=== PATIENT | female | born 1965 | race Caucasian/White ===

== ENCOUNTER 2022-10-08 09:39 | Observation (INO) ==
[2022-10-08 12:05] LABS: BASOPHILS % (AUTO) 0.8 % (0.2-1.0); EOSINOPHILS # (AUTO) 0.2 x10^3/uL (0.0-0.2); HEMATOCRIT 28.4 % (36.0-47.0); HEMOGLOBIN 9.5 g/dL (12.0-16.0); LYMPHOCYTES # (AUTO) 1.5 X10^3/uL (1.3-2.9); LYMPHOCYTES % (AUTO) 25.1 % (21.0-51.0); MEAN CORPUSCULAR HEMOGLOBIN 30.1 pg (27.0-34.0); MEAN CORPUSCULAR HGB CONC 33.5 g/dL (33.0-35.0); MEAN PLATELET VOLUME 9.4 fL (7.4-11.0); MONOCYTES # (AUTO) 0.4 x10^3/uL (0.3-0.8); MONOCYTES % (AUTO) 7.1 % (0.0-13.0); RED BLOOD COUNT 3.16 X10^6/uL (3.5-5.4); RED CELL DISTRIBUTION WIDTH 13.8 % (11.6-16.5); WHITE BLOOD COUNT 6.2 X10^3/uL (3.6-10.0)
[2022-10-08 12:08] VITALS: BMI 46.8
[2022-10-08 12:16] LABS: ALANINE AMINOTRANSFERASE 12 Units/L (12-78); ALKALINE PHOSPHATASE 168 Units/L (46-116); ASPARTATE AMINO TRANSFERASE 13 Units/L (15-37); BLOOD UREA NITROGEN 44 mg/dL (7-18); CALCIUM 8.9 mg/dL (8.5-10.1); CARBON DIOXIDE 25.6 mmol/L (21-32); CHLORIDE 106 mmol/L (98-107); COR CA(FOR HYPOALB) 9.7 mg/dL (8.5-10.1); CREATININE 2.59 mg/dL (0.55-1.02); SODIUM 139 mmol/L (136-145); TOTAL PROTEIN 7.2 g/dL (6.4-8.2); eGFR NON BLACK RACES 20 (>60)
[2022-10-08] MEDS ORDERED: NEURONTIN CAP 300 MG PO PRN (12:32)
[2022-10-08] MEDS ORDERED: FLEXERIL TAB 10 MG PO PRN (12:32)
[2022-10-08] MEDS: NS 1,000 ML IV 1,000 ML IV SCH ×2 (13:31→21:52)
[2022-10-08] MEDS: KAYEXALATE SUSP PO SCH ×2 (13:31→20:10)
--- NOTE | 2022-10-08 14:52 | RAD ---
HISTORYWeaknessSTUDYAP chestCOMPARISONMar 2022FINDINGSHeart size normal with clear lungs and pleural spaces. There is no significant vascular congestion, pneumonia or pleural effusion.IMPRESSIONNo acute chest findings.Electronically signed by: GERBER ZAPATA (Oct 08, 2022 14:51:37)
[2022-10-08 15:15] LABS: BILIRUBIN,URINE NEGATIVE (NEGATIVE); BLOOD/HEMOGLOBIN,URINE NEGATIVE (NEGATIVE); GLUCOSE, URINE NEGATIVE (NEGATIVE); KETONES,URINE NEGATIVE (NEGATIVE); LEUKOCYTE ESTERASE ,URINE NEGATIVE (NEGATIVE); NITRITES,URINE POSITIVE (NEGATIVE); PH,URINE 6.5 (5.0 - 8.0); PROTEIN,URINE NEGATIVE (NEGATIVE); UROBILINOGEN,URINE 1+ (NORMAL)
[2022-10-08 15:34] LABS: APPEARANCE,URINE SLIGHTLY HAZY (CLEAR); BACTERIA,URINE 4+ /HPF (NEGATIVE); COLOR,URINE YELLOW (YELLOW); RBC,URINE NONE SEEN /HPF (0-3); SQUAMOUS EPITHELIAL CELL,UR MODERATE /HPF (NEGATIVE)
[2022-10-08] MEDS ORDERED: Atrovent NEB TX 0.02% ONE (19:04)
[2022-10-08] MEDS: SEROquel TAB 25 mg PO SCH (20:11)
[2022-10-08] MEDS: BUSPAR PO SCH (20:11)
[2022-10-08] MEDS: ZOLOFT PO SCH (20:12)
[2022-10-08] MEDS: PROVENTIL NEB TX 0.083% 2.5MG/ 3ML NEB PRN (20:24)
[2022-10-08] MEDS: Atrovent NEB TX 0.02% NEB SCH (20:24)
[2022-10-09] MEDS: NORCO 10/325 TAB PO PRN (00:36)
[2022-10-09 05:05] LABS: BASOPHILS # (AUTO) 0.1 X10^3/uL (0.0-0.1); BASOPHILS % (AUTO) 0.9 % (0.2-1.0); EOSINOPHILS # (AUTO) 0.2 x10^3/uL (0.0-0.2); EOSINOPHILS % (AUTO) 4.4 % (0.9-2.9); HEMATOCRIT 24.2 % (36.0-47.0); HEMOGLOBIN 8.2 g/dL (12.0-16.0); LYMPHOCYTES # (AUTO) 2.5 X10^3/uL (1.3-2.9); MEAN CORPUSCULAR HEMOGLOBIN 30.4 pg (27.0-34.0); MEAN CORPUSCULAR VOLUME 89.4 fL (80.0-100.0); MONOCYTES # (AUTO) 0.5 x10^3/uL (0.3-0.8); MONOCYTES % (AUTO) 8.7 % (0.0-13.0); NEUTROPHILS # (AUTO) 2.3 x10^3/uL (2.2-4.8); RED BLOOD COUNT 2.71 X10^6/uL (3.5-5.4); WHITE BLOOD COUNT 5.6 X10^3/uL (3.6-10.0)
[2022-10-09 05:16] LABS: ALBUMIN 2.5 g/dL (3.4-5.0); CALCIUM 7.8 mg/dL (8.5-10.1); CARBON DIOXIDE 24.7 mmol/L (21-32); CREATININE 2.29 mg/dL (0.55-1.02); TOTAL PROTEIN 6.1 g/dL (6.4-8.2)
[2022-10-09] MEDS: NS 1,000 ML IV 1,000 ML IV SCH ×3 (05:45→20:49)
[2022-10-09] MEDS ORDERED: PULMICORT NEB TX 0.5 MG NEB ONE (06:58)
[2022-10-09] MEDS: PULMICORT NEB TX 0.5 MG NEB SCH ×2 (08:23→20:42)
[2022-10-09] MEDS: Atrovent NEB TX 0.02% NEB SCH (08:23)
[2022-10-09] MEDS: SINGULAIR TAB 10 MG PO SCH (08:38)
[2022-10-09] MEDS: BUSPAR PO SCH ×2 (08:39→20:48)
[2022-10-09] MEDS: ROCALTROL PO SCH (08:39)
[2022-10-09] MEDS: ROCEPHIN VIAL 1 GRAM 1 G in NS 100 ML IV 100 ML IV SCH ×2 (08:54→09:00)
[2022-10-09] MEDS ORDERED: INFeD or DEXFERRUM 25 MG in NS 100 ML IV 100 ML IV ONE (09:00)
[2022-10-09] MEDS ORDERED: NS IV ONE (10:00)
[2022-10-09] MEDS ORDERED: INFED OR DEXFERRUM IV ONE (10:00)
[2022-10-09] MEDS ORDERED: FLUZONE II4 or AFLURIA II4 IM ONE (10:01)
--- NOTE | 2022-10-09 10:16 | RAD ---
HISTORYCHFSTUDYCHEST, 1 [id number]/30/2023.TECHNIQUEPA or AP view of the chestFINDINGSThe cardiac and mediastinal contours are within normal limits. The lungs are clear without focal consolidation or segmental collapse. No pleural effusion or pneumothorax. Soft tissue attenuation limits evaluation.IMPRESSIONNo acute pulmonary process.Electronically signed by: Zackary Arnold (Oct 09, 2022 10:15:25)
[2022-10-09] MEDS ORDERED: INFeD or DEXFERRUM 975 MG in NS 500 ML IV 500 ML IV ONE (12:00)
--- NOTE | 2022-10-09 13:29 | DR.H&P ---
H&P - History & Physical for Day of: H&P Date: 10/08/22 - Chief Complaint Chief Complaint: weakness, high potassium level - History of Present Illness History of Present Illness: PT IS 56 WF, DIRECT ADMIT WITH ACUTE RENAL FAILURE, HYPERKALEMIA AND COMPLAINTS OF DIFFUSE WEAKNESS. PT REPORTS SHE WAS RECENTLY IN [facility] FOR "ACUTE KIDNEY FAILURE". PT DENIES ANY PMH OF CAD, HOWEVER STATES HAS CHF. PT HAS PMH OF DM, CAD, OA, AND HTN. PT ADMITTED FOR TREATMENT AND EVALUATION OF ACUTE ILLNESS. - Past Medical History Past Medical History: Anxiety, Arthritis, CHF, Depression, Diabetes, GERD, Hyp ertension, Renal Disease - Past Surgical History Surgical History: No History - Family History Family Medical History: [place] - Social History Does patient currently use any type of tobacco product: Yes Have you used tobacco products in the last 12 months: Yes Type of Tobacco Use: Cigarettes Alcohol Use: None Drug Use: Prescription Drugs - Medications Home Medications: risperidone Allergy (Verified 10/08/22 11:24) Sulfa (Sulfonamide Antibiotics) Allergy (Verified 10/08/22 11:26) CONTINUE taking the following medications albuterol sulfate 90 mcg/actuation aerosol inhaler 1 inh inhalation PRN PRN Shortness Of Breath 10/08/22 [History] allopurinol 300 mg tablet 300 mg PO QDAY 10/08/22 [History] atorvastatin 40 mg tablet 40 mg PO QDAY 10/08/22 [History] budesonide-formoterol HFA 160 mcg-4.5 mcg/actuation aerosol inhaler (Symbicort) 1 inh inhalation DAILY 10/08/22 [History] buspirone 10 mg tablet 10 mg PO BID 10/08/22 [History] calcitriol 0.25 mcg capsule 0.25 mcg PO QDAY 10/08/22 [History] colchicine 0.6 mg tablet 0.6 mg PO BID 10/08/22 [History] cyclobenzaprine 10 mg tablet 10 mg PO BID PRN 10/08/22 [History] doxepin 25 mg capsule 25 mg PO QPM 10/08/22 [History] ergocalciferol (vitamin D2) 1,250 mcg (50,000 unit) capsule 1,250 mcg PO QWEEK 10/08/22 [History] escitalopram oxalate 20 mg tablet 20 mg PO QDAY 10/08/22 [History] famotidine 20 mg tablet 20 mg PO QDAY 10/08/22 [History] ferrous sulfate 325 mg (65 mg iron) tablet,delayed release 325 mg PO BID 10/08/22 [History] fluticasone propionate 50 mcg/actuation nasal spray,suspension 1 spray intranasal QDAY 10/08/22 [History] furosemide 40 mg tablet 40 mg PO QDAY 10/08/22 [History] gabapentin 300 mg capsule 300 mg PO QID 10/08/22 [History] hydrocodone 10 mg-acetaminophen 325 mg tablet 1 tab PO QID PRN 10/08/22 [History] lisinopril 10 mg tablet 10 mg PO BID 10/08/22 [History] montelukast 10 mg tablet 10 mg PO QDAY 10/08/22 [History] quetiapine 50 mg tablet 50 mg PO HS 10/08/22 [History] ropinirole 2 mg tablet 2 mg PO QPM 10/08/22 [History] sertraline 25 mg tablet 25 mg PO HS 10/08/22 [History] tiotropium bromide 18 mcg capsule with inhalation device (Spiriva with HandiHaler) 1 cap inhalation QDAY 10/08/22 [History] tramadol 200 mg tablet,extended release 24 hr 200 mg PO QDAY PRN Pain 10/08/22 [History] - Review of Systems Constitutional: Weakness, Malaise Eyes: No Symptoms Reported ENT: No Symptoms Reported Respiratory: SOB with Excertion Cardiovascular: Edema Gastrointestinal: Nausea Musculoskeletal: Back Pain Skin: No Symptoms Reported Neurological: Weakness - Physical Exam Vital Signs: Temperature 98.7 F Pulse Rate [Apical] 93 Respiratory Rate 24 Blood Pressure [Right Arm] 131/65 O2 Sat by Pulse Oximetry 100 Oriented: Normal Eyes: Normal Ear: Normal Nose: Normal Throat: Normal Respiratory: RLL Diminished, LLL Diminished Cardiovascular: Normal, Edema : Normal Auscultation: Bowel Sounds: Normal Palpation: Normal Tenderness: Normal Skin: Decreased Turgur Musculoskeletal: Back:Lumbar Psychiatric: Anxiety Affect: Anxious Speech Pattern: Clear, Appropriate - Assessment/Plan (1) Acute renal failure Status: Acute Plan: ADMIT, IV HYDRATION WITH STRICT I&OS. CARDIAC ENZYMES AND EKG, CXR ON ADMISSION. VERIFY HOME MEDICATION, BP AND BS CONTROL. OBTAIN DC SUMMARY FROM [facility] IN [facility] [place]. AM LABS, PRN RESP THERAPY, TREAT ELECTROLYTE IMBALANCE (2) Hyperkalemia Status: Acute (3) CHF (congestive heart failure) Status: Acute (4) JONES (generalized anxiety disorder) Status: Acute - Allergies Allergies/Adverse Reactions: Allergies Allergy/AdvReac Type Severity Reaction Status Date / Time risperidone Allergy Verified 10/08/22 11:24 Sulfa (Sulfonamide Allergy Verified 10/08/22 11:26 Antibiotics)
--- NOTE | 2022-10-09 13:32 | PCM.PROG ---
Progress Note - Progress Note for Day of Date of Exam: 10/09/22 - Subjective Subjective: PT IS 56 WF, DIRECT ADMIT WITH ACUTE KIDNEY INJURY AND HYPERKALEMIA. PTS POTASSIUM WAS NORMAL THIS AM. PT IV FLUIDS WERE DECREASED TO 75CC/HR WITH REPEAT CXR THIS AM TO MONITOR FOR FLUID OVERLOAD, ISBELL PLACED FOR STRICT I&OS. PT HAS A UTI, WE STARTED HER ON ROCEPHIN 1GM DAILY, WITH CULTURE PENDING. PT HAS DIFFUSE WEAKNESS FROM ACUTE ILLNESS AND WE RECOMMEND PHYSICAL THERAPY. - Past Medical Family Social History Past Med/Fam/Surg Hx: No changes since H&P Allergies: Allergies risperidone Allergy (Verified 10/08/22 11:24) Sulfa (Sulfonamide Antibiotics) Allergy (Verified 10/08/22 11:26) - Vital Signs and I&O's Vital Signs: Temperature 98.1 F Pulse Rate [Apical] 94 Pulse Rate 92 Respiratory Rate 17 Blood Pressure [Right Arm] 103/53 O2 Sat by Pulse Oximetry 98 Intake and Output: Intake & Output 10/07/22 10/08/22 10/09/22 10/10/22 11:59 11:59 11:59 11:59 Intake Total 2356 / 2356 Output Total 100 / 100 Balance 2256 / 2256 - Physical Exam Oriented: Normal Eyes: Normal Ear: Normal Nose: Normal Throat: Normal Respiratory: Diminished, Wheezes Cardiovascular: Normal, Edema : Normal Auscultation: Bowel Sounds: Normal Tenderness: Normal Skin: Decreased Turgur Musculoskeletal: Back:Lumbar Psychiatric: Anxiety Affect: Anxious Speech Pattern: Clear, Appropriate - Laboratory and Diagnostics Result Diagrams: 10/09/22 04:03 10/09/22 04:03 Labs: 10/08/22 14:50 Urine,Clean Catch Urine Culture - Preliminary Laboratory WBC 5.6 X10^3/uL (3.6-10.0) 10/09/22 04:03 RBC 2.71 X10^6/uL (3.5-5.4) L 10/09/22 04:03 Hgb 8.2 g/dL (12.0-16.0) L 10/09/22 04:03 Hct 24.2 % (36.0-47.0) L 10/09/22 04:03 MCV 89.4 fL (80.0-100.0) 10/09/22 04:03 MCH 30.4 pg (27.0-34.0) 10/09/22 04:03 MCHC 34.0 g/dL (33.0-35.0) 10/09/22 04:03 RDW 14.0 % (11.6-16.5) 10/09/22 04:03 Plt Count 250 X10^3/uL (150.0-450.0) 10/09/22 04:03 MPV 10.0 fL (7.4-11.0) 10/09/22 04:03 Neut % (Auto) 42.0 % (42.0-75.0) 10/09/22 04:03 Lymph % (Auto) 44.0 % (21.0-51.0) 10/09/22 04:03 [place] % (Auto) 8.7 % (0.0-13.0) 10/09/22 04:03 Eos % (Auto) 4.4 % (0.9-2.9) H 10/09/22 04:03 Baso % (Auto) 0.9 % (0.2-1.0) 10/09/22 04:03 Neut # (Auto) 2.3 x10^3/uL (2.2-4.8) 10/09/22 04:03 Lymph # (Auto) 2.5 X10^3/uL (1.3-2.9) 10/09/22 04:03 [place] # (Auto) 0.5 x10^3/uL (0.3-0.8) 10/09/22 04:03 Eos # (Auto) 0.2 x10^3/uL (0.0-0.2) 10/09/22 04:03 Baso # (Auto) 0.1 X10^3/uL (0.0-0.1) 10/09/22 04:03 Absolute Nucleated RBC 0.0 /100WBC 10/09/22 04:03 Sodium 142 mmol/L (136-145) 10/09/22 04:03 Corrected Sodium 142 mmol/L (136-145) 10/09/22 04:03 Potassium 4.5 mmol/L (3.5-5.1) 10/09/22 04:03 Chloride 109 mmol/L (98-107) H 10/09/22 04:03 Carbon Dioxide 24.7 mmol/L (21-32) 10/09/22 04:03 BUN 36 mg/dL (7-18) H 10/09/22 04:03 Creatinine 2.29 mg/dL (0.55-1.02) H 10/09/22 04:03 Est GFR (MDRD) Af Amer 28 (>60) L 10/09/22 04:03 Est GFR (MDRD) Non-Af 23 (>60) L 10/09/22 04:03 Glucose 113 mg/dL (65-99) H 10/09/22 04:03 Calcium 7.8 mg/dL (8.5-10.1) L 10/09/22 04:03 Corrected Calcium 9.0 mg/dL (8.5-10.1) 10/09/22 04:03 Iron 42 ug/dL (50-175) L 10/08/22 13:46 Total Bilirubin 0.40 mg/dL (0.2-1.0) 10/09/22 04:03 AST 11 Units/L (15-37) L 10/09/22 04:03 ALT 10 Units/L (12-78) L 10/09/22 04:03 Alkaline Phosphatase 142 Units/L (46-116) H 10/09/22 04:03 Creatine Kinase 23 Units/L (26-192) L 10/09/22 00:30 Troponin I High Sens 5.7 ng/L (4.0-60.0) 10/09/22 00:30 Total Protein 6.1 g/dL (6.4-8.2) L 10/09/22 04:03 Albumin 2.5 g/dL (3.4-5.0) L 10/09/22 04:03 Globulin 3.6 g/dL (2.5-4.5) 10/09/22 04:03 Albumin/Globulin Ratio 0.7 Ratio (1.1-2.1) L 10/09/22 04:03 Specimen Type Clean catch urine 10/08/22 14:50 Urine Color Yellow (YELLOW) 10/08/22 14:50 Urine Appearance Slightly hazy (CLEAR) 10/08/22 14:50 Urine pH 6.5 (5.0 - 8.0) 10/08/22 14:50 Ur Specific [place] 1.020 (1.000-1.030) 10/08/22 14:50 Urine Protein Negative (NEGATIVE) 10/08/22 14:50 Urine Glucose (UA) Negative (NEGATIVE) 10/08/22 14:50 Urine Ketones Negative (NEGATIVE) 10/08/22 14:50 Urine Blood Negative (NEGATIVE) 10/08/22 14:50 Urine Nitrite Positive (NEGATIVE) 10/08/22 14:50 Urine Bilirubin Negative (NEGATIVE) 10/08/22 14:50 Urine Urobilinogen 1+ (NORMAL) 10/08/22 14:50 Ur Leukocyte Esterase Negative (NEGATIVE) 10/08/22 14:50 Urine RBC None seen /HPF (0-3) 10/08/22 14:50 Urine WBC 0-2 /HPF (0-5) 10/08/22 14:50 Ur Squamous Epith Cells Moderate /HPF (NEGATIVE) 10/08/22 14:50 Urine Bacteria 4+ /HPF (NEGATIVE) 10/08/22 14:50 Ur Culture Indicated? Yes/culture set up 10/08/22 14:50 - Plan (1) Acute renal failure Status: Acute Plan: IV HYDRATION WITH STRICT I&OS. CARDIAC ENZYMES AND EKG, CXR ON ADMISSION. VERIFY HOME MEDICATION, BP AND BS CONTROL. OBTAIN DC SUMMARY FROM [facility] IN [facility] [place]. AM LABS, PRN RESP THERAPY, TREAT ELECTROLYTE IMBALANCE (2) Hyperkalemia Status: Acute (3) CHF (congestive heart failure) Status: Acute (4) JONES (generalized anxiety disorder) Status: Acute
[2022-10-09] MEDS ORDERED: Atrovent NEB TX 0.02% ONE (20:29)
[2022-10-09] MEDS ORDERED: PROVENTIL NEB TX 0.083% 2.5MG/ 3ML ONE (20:30)
[2022-10-09] MEDS: PROVENTIL NEB TX 0.083% 2.5MG/ 3ML NEB PRN (20:42)
[2022-10-09] MEDS: ZOLOFT PO SCH (20:48)
[2022-10-09] MEDS: SEROquel TAB 25 mg PO SCH (20:48)
[2022-10-10] MEDS: NS 1,000 ML IV 1,000 ML IV SCH ×2 (04:47→14:29)
[2022-10-10 05:36] LABS: BASOPHILS % (AUTO) 0.7 % (0.2-1.0); EOSINOPHILS # (AUTO) 0.2 x10^3/uL (0.0-0.2); EOSINOPHILS % (AUTO) 3.2 % (0.9-2.9); HEMATOCRIT 23.4 % (36.0-47.0); LYMPHOCYTES # (AUTO) 1.9 X10^3/uL (1.3-2.9); LYMPHOCYTES % (AUTO) 41.1 % (21.0-51.0); MEAN CORPUSCULAR HEMOGLOBIN 30.5 pg (27.0-34.0); MEAN CORPUSCULAR HGB CONC 34.1 g/dL (33.0-35.0); MEAN CORPUSCULAR VOLUME 89.3 fL (80.0-100.0); MONOCYTES # (AUTO) 0.4 x10^3/uL (0.3-0.8); MONOCYTES % (AUTO) 8.9 % (0.0-13.0); NEUTROPHILS # (AUTO) 2.2 x10^3/uL (2.2-4.8); NEUTROPHILS % (AUTO) 46.1 % (42.0-75.0); RED BLOOD COUNT 2.62 X10^6/uL (3.5-5.4); WHITE BLOOD COUNT 4.7 X10^3/uL (3.6-10.0)
[2022-10-10 05:53] LABS: ALANINE AMINOTRANSFERASE 9 Units/L (12-78); ALBUMIN 2.4 g/dL (3.4-5.0); ALKALINE PHOSPHATASE 137 Units/L (46-116); BLOOD UREA NITROGEN 26 mg/dL (7-18); CARBON DIOXIDE 21.7 mmol/L (21-32); CHLORIDE 111 mmol/L (98-107); COR CA(FOR HYPOALB) 9.3 mg/dL (8.5-10.1); CREATININE 1.46 mg/dL (0.55-1.02); SODIUM 141 mmol/L (136-145); eGFR NON BLACK RACES 39 (>60)
[2022-10-10 06:16] LABS: ASPARTATE AMINO TRANSFERASE 14 Units/L (15-37)
[2022-10-10] MEDS: ROCEPHIN VIAL 1 GRAM 1 G in NS 100 ML IV 100 ML IV SCH (09:06)
[2022-10-10] MEDS: BUSPAR PO SCH ×2 (09:06→20:54)
[2022-10-10] MEDS: SINGULAIR TAB 10 MG PO SCH (09:06)
[2022-10-10] MEDS: ROCALTROL PO SCH (09:06)
[2022-10-10] MEDS: NORCO 10/325 TAB PO PRN (09:08)
[2022-10-10] MEDS: PULMICORT NEB TX 0.5 MG NEB SCH ×2 (09:13→20:05)
[2022-10-10] MEDS: Atrovent NEB TX 0.02% NEB SCH (09:13)
--- NOTE | 2022-10-10 11:17 | RAD ---
HISTORYCHF HX: CHF, HTNM COPDSTUDYCHEST, 1 [id number]/31/2023FINDINGSCardiome diastinal silhouette within normal limits. No focal consolidation, pulmonary edema, sizeable pleural effusion, or visible pneumothorax. No acute osseous finding.IMPRESSIONNo acute appearing finding.Electronically signed by: Matthew Moise (Oct 10, 2022 11:15:39)
[2022-10-10] MEDS ORDERED: PROVENTIL NEB TX 0.083% 2.5MG/ 3ML ONE (20:04)
[2022-10-10] MEDS: PROVENTIL NEB TX 0.083% 2.5MG/ 3ML NEB PRN (20:05)
[2022-10-10] MEDS: ZOLOFT PO SCH (20:53)
[2022-10-10] MEDS: SEROquel TAB 25 mg PO SCH (20:55)
[2022-10-11] MEDS: NORCO 10/325 TAB PO PRN (00:51)
[2022-10-11] MEDS: NS 1,000 ML IV 1,000 ML IV SCH ×2 (01:18→05:00)
[2022-10-11 04:57] LABS: BASOPHILS % (AUTO) 0.8 % (0.2-1.0); EOSINOPHILS # (AUTO) 0.1 x10^3/uL (0.0-0.2); EOSINOPHILS % (AUTO) 2.2 % (0.9-2.9); HEMATOCRIT 24.3 % (36.0-47.0); HEMOGLOBIN 8.5 g/dL (12.0-16.0); LYMPHOCYTES # (AUTO) 2.6 X10^3/uL (1.3-2.9); LYMPHOCYTES % (AUTO) 44.2 % (21.0-51.0); MEAN CORPUSCULAR HGB CONC 34.8 g/dL (33.0-35.0); MEAN CORPUSCULAR VOLUME 88.8 fL (80.0-100.0); MEAN PLATELET VOLUME 9.7 fL (7.4-11.0); MONOCYTES # (AUTO) 0.5 x10^3/uL (0.3-0.8); MONOCYTES % (AUTO) 8.7 % (0.0-13.0); NEUTROPHILS # (AUTO) 2.6 x10^3/uL (2.2-4.8); NEUTROPHILS % (AUTO) 44.1 % (42.0-75.0); RED BLOOD COUNT 2.74 X10^6/uL (3.5-5.4); RED CELL DISTRIBUTION WIDTH 13.9 % (11.6-16.5)
[2022-10-11 05:07] LABS: ALANINE AMINOTRANSFERASE 8 Units/L (12-78); ALBUMIN 2.4 g/dL (3.4-5.0); ALKALINE PHOSPHATASE 144 Units/L (46-116); ASPARTATE AMINO TRANSFERASE 15 Units/L (15-37); BLOOD UREA NITROGEN 16 mg/dL (7-18); CARBON DIOXIDE 20.2 mmol/L (21-32); CHLORIDE 111 mmol/L (98-107); COR CA(FOR HYPOALB) 9.3 mg/dL (8.5-10.1); SODIUM 140 mmol/L (136-145); TOTAL PROTEIN 5.9 g/dL (6.4-8.2); eGFR NON BLACK RACES 49 (>60)
[2022-10-11 05:26] LABS: WHITE BLOOD COUNT 6.4 X10^3/uL (3.6-10.0)
[2022-10-11 05:27] LABS: PLATELET MORPHOLOGY COMMENT NORMAL (NORMAL)
[2022-10-11 05:30] LABS: IRON 199 ug/dL (50-175)
[2022-10-11] MEDS: PROVENTIL NEB TX 0.083% 2.5MG/ 3ML NEB PRN (08:06)
[2022-10-11] MEDS: Atrovent NEB TX 0.02% NEB SCH (08:06)
[2022-10-11] MEDS: PULMICORT NEB TX 0.5 MG NEB SCH (08:06)
[2022-10-11] MEDS: ROCEPHIN VIAL 1 GRAM 1 G in NS 100 ML IV 100 ML IV SCH (09:21)
[2022-10-11] MEDS: ROCALTROL PO SCH (09:21)
[2022-10-11] MEDS: SINGULAIR TAB 10 MG PO SCH (09:21)
[2022-10-11] MEDS: BUSPAR PO SCH (09:22)
[2022-10-11 11:07] VITALS: BP 151/67
== END 2022-10-11 13:15 | disposition home or self-care (01) ==
LOC: ICU
PROVIDERS: ADMIT Internal Medicine; ATTEND Internal Medicine
DX: B96.29 Other Escherichia coli [E. coli] as the cause of diseases classified elsewhere; F41.8 Other specified anxiety disorders; N17.8 Other acute kidney failure; K92.1 Melena; K21.9 Gastro-esophageal reflux disease without esophagitis; N39.0 Urinary tract infection, site not specified; I50.9 Heart failure, unspecified; E11.65 Type 2 diabetes mellitus with hyperglycemia; E87.5 Hyperkalemia; I11.0 Hypertensive heart disease with heart failure; R79.89 Other specified abnormal findings of blood chemistry; R53.1 Weakness